=== PATIENT | male | born 2000 | race African-American/Black ===

== ENCOUNTER 2023-09-02 16:32 | Emergency (ER) | payer OTHER ==
[2023-09-02 16:41] VITALS: BP 119/75; PULSE 61; RESP 18; TEMP 97.8; BMI 26.7
[2023-09-02] MEDS ORDERED: KETOROLAC TROMETHAMINE 30 MG/1 ML VIAL IM ONE (17:18)
[2023-09-02] MEDS ORDERED: METHOCARBAMOL 500 MG TABLET PO ONE (17:18)
[2023-09-02] MEDS ORDERED: ACETAMINOPHEN 500 MG TABLET (FP) PO ONE (17:19)
[2023-09-02] MEDS ORDERED: LIDOCAINE 4% PATCH TP ONE ×2 (17:19→17:36)
[2023-09-02] MEDS ORDERED: KETOROLAC TROMETHAMINE 30 MG/1 ML VIAL ONE (17:36)
[2023-09-02] MEDS ORDERED: ACETAMINOPHEN 500 MG TABLET (FP) ONE (17:36)
[2023-09-02] MEDS ORDERED: METHOCARBAMOL 500 MG TABLET ONE (17:36)
[2023-09-02] MEDS ORDERED: IBUPROFEN 600 MG TABLET (FP) PO ONE ×2 (17:42→17:44)
[2023-09-02] MEDS ORDERED: LIDOCAINE PATCH REMOVAL MC SCH (22:00)
== END 2023-09-02 19:22 | disposition home or self-care (01) ==
LOC: JERFT 16:32
DX: M54.50 Low back pain, unspecified (principal); S39.012A Strain of muscle, fascia and tendon of lower back, initial encounter; M62.830 Muscle spasm of back; X50.0XXA Overexertion from strenuous movement or load, initial encounter
CPT/HCPCS: 72131-TC; 99284-25